=== PATIENT | male | born 2000 | race Caucasian/White ===

== ENCOUNTER 2020-07-27 07:06 | Outpatient (REF) | payer OTHER, SELFPAY ==
[2020-07-27 07:59] LABS: COVID-19 Test Negative (Negative)
== END 2020-07-27 07:07 | disposition home or self-care (01) ==
LOC: HO.LAB 07:06
PROVIDERS: Visit Provider Internal Medicine
DX: Z20.828 Contact with and (suspected) exposure to other viral communicable diseases (principal)
CPT/HCPCS: 87635

== ENCOUNTER 2020-07-31 10:39 | Outpatient (REF) | payer OTHER, SELFPAY ==
[2020-07-31 11:35] LABS: COVID-19 Test Negative (Negative)
== END 2020-07-31 10:40 | disposition home or self-care (01) ==
LOC: HO.LAB 10:39
PROVIDERS: Visit Provider Internal Medicine
DX: Z20.828 Contact with and (suspected) exposure to other viral communicable diseases (principal)
CPT/HCPCS: 87635

== ENCOUNTER → 2020-09-07 15:35 | Outpatient (BNVA) | payer OTHER, SELFPAY | PROVIDERS: Visit Provider Physician Assistant Medical | DX: Z13.89 Encounter for screening for other disorder (principal) | CPT/HCPCS: 99201 ==

== ENCOUNTER 2020-09-25 11:09 | Outpatient (REF) | payer OTHER, SELFPAY ==
[2020-09-25 11:35] LABS: COVID-19 Test Negative (Negative); IDNOW Serial# 55D5AD1C
== END 2020-09-25 11:10 | disposition home or self-care (01) ==
LOC: HO.EMPCOV 11:09
PROVIDERS: Visit Provider Internal Medicine
DX: Z20.828 Contact with and (suspected) exposure to other viral communicable diseases (principal)
CPT/HCPCS: 87635; C9803

== ENCOUNTER 2020-10-05 11:38 | Outpatient (RCR) | payer OTHER, SELFPAY ==
[2020-10-10 09:41] LABS: SARS-COV-2 PCR UMBRL Not Detected
[2020-10-18 09:53] LABS: SARS-COV-2 PCR UMBRL NOT DETECTED
[2020-10-22 09:55] LABS: SARS-COV-2 PCR UMBRL NEGATIVE
== END 2020-10-05 11:39 | disposition home or self-care (01) ==
LOC: HO.EMPCOV 11:38
PROVIDERS: Visit Provider Internal Medicine
DX: Z20.828 Contact with and (suspected) exposure to other viral communicable diseases (principal)
CPT/HCPCS: 36415; C9803; U0003

== ENCOUNTER → 2021-05-31 10:28 | Outpatient (BNVA) | payer OTHER, SELFPAY | DX: Z76.89 Persons encountering health services in other specified circumstances (principal) ==

== ENCOUNTER 2023-03-17 16:59 | Outpatient (REF) | payer OTHER, SELFPAY ==
[2023-03-18 02:47] LABS: CT PCR NOT DETECTED (Not Detect.); NG PCR NOT DETECTED (Not Detect.)
[2023-03-19 06:12] LABS: Syphilis Screen Nonreactive (Nonreactive)
[2023-03-19 07:23] LABS: HBS Num1 48.31 mIU/mL (0-7.99); HBc Num1 0.07 S/CO (0.00-0.79); HBsAGNum1 0.32 S/CO (0.00-0.99); HIV AB/AG Nonreactive (Nonreactive); HIV Num 1 0.14 S/CO (0.00-0.99); Hepatitis B Core Antibody Nonreactive (Nonreactive); Hepatitis B Surface Antigen Negative (Negative); ~HepC Num1 0.09 S/CO (0.00-0.79); ~Hepatitis B Surface Antibody REACTIVE (Nonreactive); ~Hepatitis C Antibody Nonreactive (Nonreactive)
== END 2023-03-17 17:00 | disposition home or self-care (01) ==
LOC: HO.LAB 16:59
PROVIDERS: PCP Physician Assistant; Visit Provider Physician Assistant
DX: Z20.2 Contact with and (suspected) exposure to infections with a predominantly sexual mode of transmission (principal)
CPT/HCPCS: 0353U; 86704; 86706; 86780; 86803; 87340; 87389

== ENCOUNTER 2023-04-22 13:39 | Outpatient (AMB) | payer OTHER, SELFPAY ==
[2023-04-22 13:42] VITALS: BP 118/82; PULSE 84; O2SAT 96; BMI 23.1
--- NOTE | 2023-04-22 13:42 | A.OFFPC_ITS ---
Vital Signs 04/22/23 13:42 Height 6 ft Weight 170 lb 0.8 oz BMI 23.1 BP 118/82 Blood Pressure Location Lt brachial Position Sitting Pulse 84 Pulse Source Pulse Oximeter Temp Source Skin Pulse Oximetry (%) 96 Oxygen Delivery Method Room Air Intake Visit Reasons: Physical exam Intake Note: Patient is here today for a physical. Online Merchandiser Required: No Allergies ragweed pollen Allergy (Mild, Verified 04/22/23 14:03) Itchy Eyes Medication List - Last Reconciled 04/22/23 by ISABEL De Leon cetirizine (Zyrtec) 10 mg PO DAILY PRN diphenhydramine HCl (Benadryl Allergy) 25 mg PO BEDTIME PRN Tobacco use date assessed: 04/22/23 Dental Screening Dental Screen Date: 04/22/23 Did you have a dental visit in the last 12 months?: Yes Did you have a dental problem in the last 6 months where you did not have access to dental care?: No Was dental information given to patient?: Patient has dentist HPI Physical exam HPI Details Patient is a 22-year-old male presents today for physical exam. Patient of LACI Thomas. medical history significant for cervical spine pain. Patient reports that he is up-to-date with tetanus vaccine. Patient reports that he was deployed recently and he was exposed to toxins in [place] - patient reports that people burn there everything outside. Reports intermittent yellow mucus in the morning very rarely, he reports that he is working on seeing a [facility], he also reports vaping. No shortness of breath or chest pain. Patient is due for blood work. [facility] Surgical History (Updated 04/22/23 @ 14:05 by ISABEL De Leon) S/P LASIK surgery Family History Father DMII (diabetes mellitus, type 2) Social History Housing: House Alcohol intake: current Alcohol intake frequency: a few times a week Alcohol type: beer Patient Tobacco Use Status: Former Tobacco user Tobacco use type: Smokeless Tobacco e-Cigarette/Vaping Use: Currently Using service: Yes Current occupational status: employed Current occupation: [employer] Cognitive needs: No Hearing needs: No Vision needs: No Questionnaire PHQ-9 Over the last 2 weeks, how often have you been bothered by any of the following problems? 1. Little interest or pleasure in doing things: not at all 2. Feeling down, depressed, or hopeless: not at all 3. Trouble falling or staying asleep, or sleeping too much: not at all 4. Feeling tired or having little energy: not at all 5. Poor appetite or overeating: not at all 6. Feeling bad about yourself - or that you are a failure or have let yourself or your family down: not at all 7. Trouble concentrating on things, such as reading the newspaper or watching television: not at all 8. Moving or speaking so slowly that other people could have noticed. Or the opposite - being so fidgety or restless that you have been moving around a lot more than usual: not at all 9. Thoughts that you would be better off or of hurting yourself in some way: not at all Total score: 0 Depression Screening Interpretation: Negative 54266 - PHQ-9 Billing: Yes Source: Developed by Drs. Silvano De Los Santos, Barby Saini, Kush Curtis and colleagues, with an educational samm from [employer]. Thrive Questionnaire Date Thrive assessed: 04/22/23 I am a: Patient What is your living situation today?: I have a steady place to live Within the past 12 months, did the food you bought not last and you didn't have the money to get more?: Never true Within the past 12 months, did you worry whether your food would run out before you got money to buy more?: Never true Currently or been in a relationship where the following occur: no concerns reported AUDIT C Alcohol Use Questionnaire (AUDIT-C) 1. How often do you have a drink containing alcohol?: Monthly or less 2. How many drinks containing alcohol do you have on a typical day when you are drinking?: 1 or 2 3. How often do you have six or more drinks on one occasion?: Never Total Score: 1 Score Reviewed/Action Taken: No LEANDER-7 AMB Questionnaire LEANDER-7 Date LEANDER - 7 assessed: 04/22/23 Feeling nervous, anxious, or on edge: 0 = Not at all Not being able to stop or control worryin = Not at all Worrying too much about different things: 0 = Not at all Trouble relaxin = Not at all Being so restless that it is hard to sit still: 0 = Not at all Becoming easily annoyed or irritable: 0 = Not at all Feeling afraid as if something awful might happen: 0 = Not at all Total LEANDER-7 score (0-4 normal; 5-9 mild; 10-14 moderate; 15-21 severe): 0 Source: Developed by Drs. Silvano De Los Santos, Barby Saini, Kush Curtis and colleagues, with an educational samm from [employer]. LEANDER-7 Assessment Billing LEANDER-7 Assessment Tool: LEANDER-7 Assessment 43684 Review of Systems Const Denies body aches, Denies chills, Denies fever(s) and Denies headache(s) Eyes Denies change in vision ENT Denies dizziness, Denies otalgia, Denies headache(s), Denies nasal discharge, Denies sinus pain and Denies sore throat Card Denies chest pain, Denies edema, Denies lightheadedness and Denies dyspnea Resp Denies cough, Denies dyspnea and Denies wheezing GI Denies abdominal pain, Denies constipation, Denies diarrhea, Denies nausea and Denies vomiting Denies dysuria Musc Denies myalgias Skin/Breast Denies rash Neuro Denies dizziness and Denies headache(s) Aller/Immun Denies wheezing Physical exam (Primary Care) Vital Signs: Last Vital Signs Pulse 84 04/22/23 13:42 BP 118/82 04/22/23 13:42 Pulse Ox 96 04/22/23 13:42 Oxygen Delivery Method Room Air 04/22/23 13:42 BMI result Body Mass Index 23.1 Tobacco/Smoking Status: Tobacco use Status Tobacco use date assessed 04/22/23 04/22/23 13:43 Patient Tobacco Use Status Former Tobacco user 04/22/23 13:43 Tobacco use type Smokeless Tobacco 04/22/23 13:43 e-Cigarette/Vaping Use Currently Using 04/22/23 13:43 PHQ-9: PHQ-9 Score PHQ-9: Total score 0 04/22/23 13:43 Depression Screening Interpretation: Negative Thrive Assessment: Date of Thrive Assessment Date Thrive assessed 04/22/23 04/22/23 13:43 Currently or been in a relationship where the following occur: no concerns reported Const General: cooperative and no acute distress Orientation/consciousness: patient oriented x3 HENMT Head: Yes normocephalic and Yes atraumatic Ears: TM's normal bilaterally Face and sinus: Yes sinuses nontender Mouth: oropharynx normal and moist mucous membranes Throat: Yes posterior oropharynx normal Eyes General: appearance normal, both eyes and all related structures Pupils: Equal, round and reactive pupils present EOM: EOMs intact bilaterally Neck Neck: Yes normal visual inspection, Yes full ROM and Yes no lymphadenopathy Thyroid: Thyroid normal Resp Effort & Inspection: normal respiratory effort and able to speak in complete sentences Auscultation: clear to auscultation bilaterally, no crackles, no rales, no rhonchi and no wheezes Cardio Rate: regular rate Rhythm: regular rhythm Heart sounds: S1 normal heart sound present, S2 normal heart sound present and no murmurs GI Palpation (GI): Soft to palpation, not firm, nontender, no guarding, not rigid and no hepatosplenomegaly Auscultation: normal bowel sounds General: No CVA tenderness Back/Spine/Pelvis Back: No CVA tenderness Skin General skin exam: no rashes or lesions noted Neuro General: patient oriented x3 Cranial nerves: Yes Equal, round and reactive pupils present Gait exam (Neuro): Normal gait present Extrem General: Yes full ROM and No edema Assessment and Plan Assessment & Plan (1) Adult general medical exam: Code(s): Z00.00 - Encounter for general adult medical examination without abnormal findings Plan: Repeat in 1 year Blood work ordered (2) Screening for hypothyroidism: Code(s): Z13.29 - Encounter for screening for other suspected endocrine disorder (3) Screening for diabetes mellitus (DM): Code(s): Z13.1 - Encounter for screening for diabetes mellitus (4) Seasonal allergies: Code(s): J30.2 - Other seasonal allergic rhinitis Plan: Continue Zyrtec daily p.r.n. or Benadryl at bedtime p.r.n. Orders: Orders Vitamin B12 and Folate Today Z00.00 - Encounter for general adult medical examination without abnormal findings Comprehensive [place]. Panel Fast Today Z13.1 - Encounter for screening for diabetes mellitus TSH reflex Free T4 Today Z13.29 - Encounter for screening for other suspected endocrine disorder Vitamin D 25-OH Total Today Z00.00 - Encounter for general adult medical examination without abnormal findings Complete Blood Count Auto Diff Today Z00.00 - Encounter for general adult medical examination without abnormal findings Coding Level of Care Code Est Pt Prev Care 18-39y([id number]) Diagnoses Adult general medical exam Z00.00 Screening for hypothyroidism Z13.29 Screening for diabetes mellitus (DM) Z13.1 Seasonal allergies J30.2 Additional Codes LEANDER-7 Assessment Billing - LEANDER-7 Assessment Tool: LEANDER-7 Assessment [id number] ([id number])
== END 2023-04-22 14:16 | disposition home or self-care (01) ==
PROVIDERS: PCP Physician Assistant; Visit Provider Nurse Practitioner Family
DX: Z00.00 Encounter for general adult medical examination without abnormal findings (principal); Z13.29 Encounter for screening for other suspected endocrine disorder; Z13.1 Encounter for screening for diabetes mellitus; J30.2 Other seasonal allergic rhinitis
CPT/HCPCS: 99395

== ENCOUNTER 2023-05-05 07:05 | Outpatient (REF) | payer OTHER, SELFPAY ==
[2023-05-05 07:21] LABS: MANUAL DIFF FLAG NO
[2023-05-05 08:13] LABS: Basophils Percent Auto 0.7 % (0-2); Eosinophils Absolute Auto 0.2 X10*3/uL (0.0-0.4); Eosinophils Percent Auto 3.9 % (0-4); Hematocrit 45.4 % (42.0-52.0); Hemoglobin 15.4 g/dl (14.0-18.0); Imm Gran Abs Auto 0.08 X10*3/uL (0.00-0.03); Imm Gran Pct Auto 1.4 % (0.0-0.4); Lymphocytes Absolute Auto 2.2 X10*3/uL (1.2-4.9); Lymphocytes Percent Auto 36.6 % (20-40); Mean Corpuscular HGB Conc 33.9 g/dl (31.0-36.0); Mean Corpuscular Hemoglobin 28.9 pg (27.0-33.0); Mean Corpuscular Volume 85.2 fL (80.0-98.0); Mean Platelet Volume 9.8 fL (9.4-12.4); Monocytes Absolute Auto 0.4 X10*3/uL (0.1-1.2); Monocytes Percent Auto 6.8 % (2-11); Neutrophils Percent Auto 50.6 % (45-73); Platelet Count 245 X10*3/uL (160-400); Red Blood Count 5.33 X10*6/uL (4.60-5.80); Red Cell Distribution Width 11.6 % (11.0-16.0); White Blood Count 5.9 X10*3/uL (4.8-10.8)
[2023-05-05 08:46] LABS: Alanine Aminotransferase 11 U/L (0-40); Albumin Level 4.5 g/dL (3.5-5.0); Alkaline Phosphatase 66 U/L (39-117); Anion Gap 15 (12-20); Aspartate Amino Transferase 11 U/L (5-37); Bilirubin Total 0.6 mg/dL (0.0-1.0); Blood Urea Nitrogen 17 mg/dL (9-16); Carbon Dioxide 24 mmol/L (22-29); Chloride 107 mmol/L (96-108); Estimated Glomerular Filt Rate > 60; Glucose Fasting 91 mg/dL (60-99); Potassium 4.1 mmol/L (3.3-5.1); Sodium 142 mmol/L (135-145); Total Protein 7.5 g/dL (6.5-8.0)
[2023-05-05 09:05] LABS: TSH reflex Free T4 1.78 uIU/mL (0.32-4.0); Vitamin D 25-OH Total 31.6 ng/mL (>30)
[2023-05-05 09:13] LABS: Folate 8.2 ng/mL (> or = 4.0); Vitamin B12 857 pg/mL (200-900)
== END 2023-05-05 07:06 | disposition home or self-care (01) ==
LOC: HO.LAB 07:05
PROVIDERS: PCP Physician Assistant; Visit Provider Nurse Practitioner Family
DX: Z00.00 Encounter for general adult medical examination without abnormal findings (principal); Z13.29 Encounter for screening for other suspected endocrine disorder; M54.2 Cervicalgia; J30.2 Other seasonal allergic rhinitis
CPT/HCPCS: 36415; 80053; 82306; 82607; 82746; 84443; 85025